=== PATIENT | male | born 1985 | race Caucasian/White ===

== ENCOUNTER 2017-08-11 10:32 | Day surgery (SDC) | payer OTHER ==
[2017-08-10 10:20] VITALS: BMI 25.7
[2017-08-11] MEDS ORDERED: Fentanyl 100 MCG/2 ML VIAL ONE (13:50)
[2017-08-11] MEDS ORDERED: Midazolam HCl 2 mg/2 ml Vial ONE (14:17)
[2017-08-11] MEDS ORDERED: Lidocaine 2% MPF 10 ML AMP (For Epidural Use) ONE (14:52)
[2017-08-11] MEDS ORDERED: Propofol 200 MG/20 ML VIAL ONE (14:52)
--- NOTE | 2017-08-11 18:27 | OP ---
PREOPERATIVE DIAGNOSIS: Wenceslao has a recurrent sebaceous cyst, right postauricular area. POSTOPERATIVE DIAGNOSIS: Wenceslao has a recurrent sebaceous cyst, right postauricular area. PROCEDURE PERFORMED: Excision of right postauricular cyst measuring 3.2 cm with complex closure. PROCEDURE IN DETAIL: After consent was obtained, the patient was identified, brought to the operati ng room and placed on the table in supine position. Anesthesia was obtained. The patient was posit ioned for surgery. The area was infiltrated with 1% lidocaine with 1:100,000 epinephrine. An ellip tical incision was made and carried down the skin and subcutaneous tissues down to the perichondrium . The mass was then removed with the cyst intact. There was a large system multiple small cysts in cluded in the specimen. The wound was then undermined anteriorly and posteriorly and the flaps were advanced into the defect and closed in layers with 4-0 Monocryl for the deep and 6-0 Prolene for th e skin.
== END 2017-08-11 16:35 | disposition home or self-care (01) ==
LOC: SDC 10:32
PROVIDERS: ATTEND Specialist
PROC: 0HB2XZZ Excision of Right Ear Skin, External Approach (ICD-10-PCS; principal; 2017-08-11)
DX: L72.0 Epidermal cyst (principal); F31.9 Bipolar disorder, unspecified; F41.9 Anxiety disorder, unspecified; Z79.899 Other long term (current) drug therapy; Z91.018 Allergy to other foods; Z98.818 Other dental procedure status; Z87.891 Personal history of nicotine dependence
CPT/HCPCS: 88304; C1782; J2001; J2250; J2704; J3010